=== PATIENT | female | born 2000 | race American Indian/Alaskan Native ===

== ENCOUNTER 2019-03-01 22:22 | Emergency (ER) | payer SELFPAY ==
[2019-03-01 22:29] VITALS: BP 123/75
[2019-03-02 01:47] LABS: HCG Qualitative,Urine Negative (Negative)
[2019-03-02 01:50] LABS: Bacteria,Urine 2+ /HPF (Negative); Bilirubin,Urine NEG (Negative); Blood,Urine SM (Negative); Color,Urine Yellow (Yellow); Mucus,Urine 2+ /HPF; Urobilinogen,Urine < 2.0 mg/dL (<2.0)
--- NOTE | 2019-03-02 01:58 | Emergency Department Report ---
ED Female HPI - General Chief complaint: Urogenital-Female Stated complaint: VAGINAL IRRITATION FROM MONISTAT 7 CREAM Time Seen by Provider: 03/02/19 01:10 Source: patient Mode of arrival: Ambulatory Limitations: No Limitations - History of Present Illness Initial comments: pt is a 18 y/o aaf who presents for dyuria frequency and hx of candidal infec tion for past week there is no fever no chills no vaginal discharge patient states she is not sexually active no concern for STI for there is no back pain no nausea vomiting no pelvic pain last menstrual cycle 2 weeks ago. Complaint: dysuria Onset/Timin -: week(s) Location: suprapubic Radiation: suprapubic Severity: moderate Severity scale (0 -10): 5 Quality: cramping Consistency: constant Worsens with: urination Are you Now?: No Last Menstrual Period: 02/11/19 EDC: 11/18/19 Associated Symptoms: dysuria. denies: vaginal discharge, vaginal bleeding, abdominal pain, nausea/vomiting, fever/chills, hematuria, rash, seizure, shortness of breath, syncope, weakness - Related Data Sexually active: No : 0 Para: 0 A: 0 Previous Rx's Medication Instructions Recorded Last Taken Type Ibuprofen [Motrin 800 MG tab] 800 mg PO Q8HR PRN #30 tablet 03/02/19 Unknown Rx Nitrofurantoin [place]/M-Cryst 100 mg PO Q12HR 7 Days #14 capsule 03/02/19 Unknown Rx [Macrobid CAP] Allergies Allergy/AdvReac Type Severity Reaction Status Date / Time No Known Allergies Allergy Unverified 03/24/14 19:21 ED Review of Systems ROS: Stated complaint: VAGINAL IRRITATION FROM MONISTAT 7 CREAM Other details as noted in HPI Constitutional: denies: chills, fever Eyes: denies: eye pain, eye discharge, vision change ENT: denies: ear pain, throat pain Respiratory: denies: cough, shortness of breath, wheezing Cardiovascular: denies: chest pain, palpitations Endocrine: no symptoms reported Gastrointestinal: denies: abdominal pain, nausea, vomiting, diarrhea Genitourinary: urgency, dysuria, frequency. denies: hematuria, discharge, abnormal menses Musculoskeletal: denies: back pain, joint swelling, arthralgia Skin: denies: rash, lesions Neurological: denies: headache, weakness, paresthesias Psychiatric: denies: anxiety, depression Hematological/Lymphatic: denies: easy bleeding, easy bruising ED Past Medical Hx - Past Medical History Previous Medical History?: No - Surgical History Past Surgical History?: Yes Additional Surgical History: left arm surgery - Social History Smoking Status: Never Smoker - Medications Home Medications: Home Medications Medication Instructions Recorded Confirmed Last Taken Type Ibuprofen [Motrin 800 MG tab] 800 mg PO Q8HR PRN #30 tablet 03/02/19 Unknown Rx Nitrofurantoin [place]/M-Cryst 100 mg PO Q12HR 7 Days #14 capsule 03/02/19 Unknown Rx [Macrobid CAP] ED Physical Exam - General Limitations: No Limitations General appearance: alert, in no apparent distress - Head Head exam: Present: atraumatic, normocephalic - Eye Eye exam: Present: normal appearance, PERRL, EOMI Pupils: Present: normal accommodation - ENT ENT exam: Present: mucous membranes moist - Neck Neck exam: Present: normal inspection. Absent: lymphadenopathy - Respiratory Respiratory exam: Present: normal lung sounds bilaterally. Absent: respiratory distress, wheezes, stridor, chest wall tenderness - Cardiovascular Cardiovascular Exam: Present: regular rate, normal rhythm, normal heart sounds. Absent: systolic murmur, diastolic murmur, rubs, gallop - GI/Abdominal GI/Abdominal exam: Present: soft, normal bowel sounds. Absent: distended, tenderness, guarding, rebound, rigid, bruit, hernia - Rectal Rectal exam: Present: deferred - External exam: Present: other (deferred per patient ) - Extremities Exam Extremities exam: Present: normal inspection, full ROM. Absent: tenderness - Back Exam Back exam: Present: normal inspection, full ROM. Absent: tenderness, CVA tenderness (R), CVA tenderness (L), muscle spasm, paraspinal tenderness, vertebral tenderness, rash noted - Neurological Exam Neurological exam: Present: alert, oriented X3, CN II-XII intact, normal gait, reflexes normal - Psychiatric Psychiatric exam: Present: normal affect, normal mood - Skin Skin exam: Present: warm, dry, intact, normal color. Absent: rash ED Course Vital Signs 03/01/19 22:25 Temperature 98.7 F Pulse Rate 96 H Respiratory 18 Rate Blood Pressure 123/75 O2 Sat by Pulse 100 Oximetry ED Medical Decision Making - Lab Data Lab Results 03/02/19 Range/Units Unknown Urine Color Yellow (Yellow) Urine Turbidity Turbid (Clear) Urine pH 7.0 (5.0-7.0) Ur Specific [place] 1.025 (1.003-1.030) Urine Protein 100 mg/dl (Negative) mg/dL Urine Glucose (UA) Neg (Negative) mg/dL Urine Ketones Neg (Negative) mg/dL Urine Blood Sm (Negative) Urine Nitrite Neg (Negative) Ur Reducing Substances Not Reportable Urine Bilirubin Neg (Negative) Urine Ictotest Not Reportable Urine Urobilinogen < 2.0 (<2.0) mg/dL Ur Leukocyte Esterase Mod (Negative) Urine WBC (Auto) 97.0 H (0.0-6.0) /HPF Urine RBC (Auto) 26.0 (0.0-6.0) /HPF U Epithel Cells (Auto) 16.0 H (0-13.0) /HPF Urine Bacteria (Auto) 2+ (Negative) /HPF Urine Mucus 2+ /HPF Urine HCG, Qual Negative (Negative) - Medical Decision Making this is a UTI , plan macrobid , ibuprofen, follow up with pcp in 2-3 days return to emergency if symptoms worsen. pt verbalized agreement and understanding of same. Critical care attestation.: If time is entered above; I have spent that time in minutes in the direct care of this critically ill patient, excluding procedure time. ED Disposition Clinical Impression: UTI (urinary tract infection) Qualifiers: Urinary tract infection type: acute cystitis Hematuria presence: without hematuria Qualified Code(s): N30.00 - Acute cystitis without hematuria Disposition: TO HOME OR SELFCARE Is pt being admited?: No Does the pt Need Aspirin: No Condition: Stable Instructions: Urinary Tract Infection in Women (ED) Prescriptions: Nitrofurantoin [place]/M-Cryst [Macrobid CAP] 100 mg PO Q12HR 7 Days #14 capsule Ibuprofen [Motrin 800 MG tab] 800 mg PO Q8HR PRN #30 tablet PRN Reason: pain Referrals: BRIGHT HERNANDEZ MD [Primary Care Provider] - 3-5 Days Forms: Work/School Release Form(ED) Time of Disposition: 02:02
== END 2019-03-02 02:22 | disposition home or self-care (01) ==
LOC: ED 22:22
DX: N39.0 Urinary tract infection, site not specified (principal)
CPT/HCPCS: 81001; 81025; 87086; 99283

== ENCOUNTER 2021-05-15 12:05 | Emergency (ER) | payer SELFPAY ==
[2021-05-15 12:11] VITALS: BP 113/75
--- NOTE | 2021-05-15 12:31 | Emergency Department Report ---
ED Extremity Problem HPI - General Chief complaint: Extremity Injury, Lower Stated complaint: RT HIP PAIN Time Seen by Provider: 05/15/21 12:25 Source: patient Mode of arrival: Ambulatory Limitations: No Limitations - History of Present Illness Initial comments: Patient is a 20-year-old female presents emergency room complaints of right hip pain that began 8 to 9 months ago. She states that she was seen at an emergency room approximately 8 months ago and prescribed a medication and she states that improved her symptoms but then they returned 4 months ago. She did not follow- up with a primary care doctor or an orthopedic doctor. She denies any fall or injury. She denies any numbness, weakness, bowel or bladder incontinence, fever, vomiting, skin changes, leg swelling, calf pain. No past medical history. No allergies to medications. Last menstrual cycle 5 days ago. - Related Data Previous Rx's Medication Instructions Recorded Last Taken Type Cyclobenzaprine [Flexeril] 10 mg PO TID PRN #10 tablet 12/19/19 Unknown Rx Ibuprofen [Motrin] 800 mg PO Q8HR PRN #30 tablet 12/19/19 Unknown Rx predniSONE [Deltasone] 20 mg PO DAILY #5 tablet 12/19/19 Unknown Rx Menthol/Camphor [[place] Crapo 1 applicatio TP BID #18 oint...g. 05/15/21 Unknown Rx Ointment] Naproxen 375 mg PO BID PRN #20 tablet 05/15/21 Unknown Rx Allergies Allergy/AdvReac Type Severity Reaction Status Date / Time No Known Allergies Allergy Verified 05/15/21 12:09 ED Review of Systems ROS: Stated complaint: RT HIP PAIN Other details as noted in HPI Comment: All other systems reviewed and negative ED Past Medical Hx - Past Medical History Previous Medical History?: No - Surgical History Additional Surgical History: left arm surgery - Social History Smoking Status: Never Smoker Substance Use Type: None - Medications Home Medications: Home Medications Medication Instructions Recorded Confirmed Last Taken Type Cyclobenzaprine [Flexeril] 10 mg PO TID PRN #10 tablet 12/19/19 Unknown Rx Ibuprofen [Motrin] 800 mg PO Q8HR PRN #30 tablet 12/19/19 Unknown Rx predniSONE [Deltasone] 20 mg PO DAILY #5 tablet 12/19/19 Unknown Rx Menthol/Camphor [[place] Crapo 1 applicatio TP BID #18 oint...g. 05/15/21 Unknown Rx Ointment] Naproxen 375 mg PO BID PRN #20 tablet 05/15/21 Unknown Rx ED Physical Exam - General Limitations: No Limitations General appearance: alert, in no apparent distress - Head Head exam: Present: atraumatic, normocephalic - Eye Eye exam: Present: normal appearance - ENT ENT exam: Present: mucous membranes moist - Extremities Exam Extremities exam: Present: other (no bony ttp of the RLE, FROM of the RLE, no deformity, no edema, no skin changes, neurovascularly intact) - Neurological Exam Neurological exam: Present: alert, oriented X3, CN II-XII intact, normal gait. Absent: motor sensory deficit - Psychiatric Psychiatric exam: Present: normal affect, normal mood - Skin Skin exam: Present: warm, dry, intact ED Course Vital Signs 05/15/21 12:10 Temperature 97.8 F Pulse Rate 104 H Respiratory 18 Rate Blood Pressure 113/75 O2 Sat by Pulse 99 Oximetry ED Medical Decision Making - Medical Decision Making Patient is a 20-year-old female presents emergency room complaints of right hip pain that began 8 to 9 months ago. She states that she was seen at an emergency room approximately 8 months ago and prescribed a medication and she states that improved her symptoms but then they returned 4 months ago. She did not follow- up with a primary care doctor or an orthopedic doctor. She denies any fall or injury. She denies any numbness, weakness, bowel or bladder incontinence, fever, vomiting, skin changes, leg swelling, calf pain. No past medical history. No allergies to medications. Last menstrual cycle 5 days ago. On exam:no bony ttp of the RLE, FROM of the RLE, no deformity, no edema, no skin changes, neurovascularly intact. Patient has no clinical signs of DVT, no calf pain or leg swelling. No clinical signs of infection or septic joint. She has 2+ distal pulses, no signs of acute arterial occlusion. She has had no trauma to suspect fracture or dislocation and she has full range of motion. Patient given prescription for medication, will be referred to orthopedic doctor. advised pt Please use medication as prescribed. May use ice for 15 minutes at a time, heating pad, rest, epsom salt bath. Do not use heat or ice while using [place] balm. Follow-up with a primary care doctor. Follow-up with orthopedic doctor. Return to emergency room for any new or worsening symptoms. Critical care attestation.: If time is entered above; I have spent that time in minutes in the direct care of this critically ill patient, excluding procedure time. ED Disposition Clinical Impression: Chronic right hip pain Disposition: 01 HOME / SELF CARE / HOMELESS Is pt being admited?: No Does the pt Need Aspirin: No Condition: Stable Instructions: Hip Pain Additional Instructions: Please use medication as prescribed. May use ice for 15 minutes at a time, heating pad, rest, epsom salt bath. Do not use heat or ice while using [place] balm. Follow-up with a primary care doctor. Follow-up with orthopedic doctor. Return to emergency room for any new or worsening symptoms. Prescriptions: Naproxen 375 mg PO BID PRN #20 tablet PRN Reason: pain Menthol/Camphor [[place] Crapo Ointment] 1 applicatio TP BID #18 oint...g. Referrals: YARELI DALTON MD [Staff Physician] - 3-5 Days (orthopedic) [facility] [Provider Group] - 3-5 Days (orthopedic) [facility] [Provider Group] - 3-5 Days (primary care) JABARI COLLINS MD [Staff Physician] - 3-5 Days (primary care) Time of Disposition: 12:33 Print Language: ITALIAN
== END 2021-05-15 13:23 | disposition home or self-care (01) ==
LOC: ED 12:05
DX: M25.551 Pain in right hip (principal); G89.29 Other chronic pain; Z79.899 Other long term (current) drug therapy
CPT/HCPCS: 99281

== ENCOUNTER 2021-09-07 20:46 | Emergency (ER) | payer SELFPAY | END 2021-09-08 02:45 | disposition left against medical advice (07) | LOC: ED 20:46 | DX: M54.9 Dorsalgia, unspecified (principal); Z53.21 Procedure and treatment not carried out due to patient leaving prior to being seen by health care provider; V89.2XXA Person injured in unspecified motor-vehicle accident, traffic, initial encounter; Y93.89 Activity, other specified; Y92.89 Other specified places as the place of occurrence of the external cause; Y99.8 Other external cause status ==

== ENCOUNTER 2021-12-16 07:15 | Emergency (ER) | payer SELFPAY ==
[2021-12-16 07:57] VITALS: BP 127/77
--- NOTE | 2021-12-16 09:29 | Emergency Department Report ---
Abscess Boil HPI - HPI Chief Complaint: Urogenital-Female Stated Complaint: VAGINAL SWELLING Time Seen by Provider: 12/16/21 09:26 Duration: 1 Day Location: Other Severity: Mild History: Yes Pain, No Fever, No Purulent Drainage, No Numbness, No Foreign Body, No Previous History, No Insect Bite HPI: Patient is a 21-year-old female that comes in with right labial pain. There is no abscess formed. But there is some lymphadenitis. She states is painful. She denies vaginal discharge or bleeding. She denies any dysuria. She has never had abscess in the past. Home Medications: Previous Rx's Medication Instructions Recorded Last Taken Type Cyclobenzaprine [Flexeril] 10 mg PO TID PRN #10 tablet 12/19/19 Unknown Rx Ibuprofen [Motrin] 800 mg PO Q8HR PRN #30 tablet 12/19/19 Unknown Rx predniSONE [Deltasone] 20 mg PO DAILY #5 tablet 12/19/19 Unknown Rx Menthol/Camphor [[place] 1 applicatio TP BID #18 oint...g. 05/15/21 Unknown Rx Ointment] Naproxen 375 mg PO BID PRN #20 tablet 05/15/21 Unknown Rx cephALEXin [Keflex] 500 mg PO Q12HR #20 cap 12/16/21 Unknown Rx Allergies/Adverse Reactions: Allergies Allergy/AdvReac Type Severity Reaction Status Date / Time No Known Allergies Allergy Verified 05/15/21 12:09 ED Review of Systems ROS: Stated complaint: VAGINAL SWELLING Other details as noted in HPI Comment: All other systems reviewed and negative ED Past Medical Hx - Past Medical History Previous Medical History?: No - Surgical History Past Surgical History?: Yes Additional Surgical History: left arm surgery - Family History Family history: no significant - Social History Smoking Status: Never Smoker Substance Use Type: None - Medications Home Medications: Home Medications Medication Instructions Recorded Confirmed Last Taken Type Cyclobenzaprine [Flexeril] 10 mg PO TID PRN #10 tablet 12/19/19 Unknown Rx Ibuprofen [Motrin] 800 mg PO Q8HR PRN #30 tablet 12/19/19 Unknown Rx predniSONE [Deltasone] 20 mg PO DAILY #5 tablet 12/19/19 Unknown Rx Menthol/Camphor [[place] 1 applicatio TP BID #18 oint...g. 05/15/21 Unknown Rx Ointment] Naproxen 375 mg PO BID PRN #20 tablet 05/15/21 Unknown Rx cephALEXin [Keflex] 500 mg PO Q12HR #20 cap 12/16/21 Unknown Rx ED Abscess Boil Physical Exam - Exam General: Vital signs noted. No distress. Alert and acting appropriately. Size: 1 cm Exam: Yes Tenderness, Yes Normal Neurologic Exam, Yes Normal Circulation, No Fluctuance, No Surrounding Cellulites/Erythema, No Lymphangitis, No Crepitation, No Heart Murmur ED Course Vital Signs 12/16/21 07:55 Temperature 98.5 F Pulse Rate 68 Respiratory 16 Rate Blood Pressure 127/77 [Left] O2 Sat by Pulse 97 Oximetry Critical care attestation.: If time is entered above; I have spent that time in minutes in the direct care of this critically ill patient, excluding procedure time. ED Medical Decision Making - Medical Decision Making There appears to be a right labial abscess forming. However there is nothing for I&D at this time. I am starting her on Keflex. She understands that she needs to take until gone. Patient has normal vital signs no tachycardia hypotension or fever. She is taking p.o. Patient being discharged home with discharge plan of care including diet, activity, medications and follow-up. She verbalizes understanding of plan of care Vital Signs 12/16/21 07:55 Temperature 98.5 F Pulse Rate 68 Respiratory 16 Rate Blood Pressure 127/77 [Left] O2 Sat by Pulse 97 Oximetry - Differential Diagnosis Abscess versus cellulitis ED Disposition Clinical Impression: Abscess Disposition: 01 HOME / SELF CARE / HOMELESS Is pt being admited?: No Does the pt Need Aspirin: No Condition: Stable Instructions: Skin Abscess Additional Instructions: Soak in Epson salts in the bathtub several times a day. This will help to come to ahead as we discussed. Avoid shaving or waxing your private area. Motrin or Tylenol for pain Medication as ordered today until gone Follow-up with PCP or [facility] next week. Have given you referral below. Referrals: JABARI COLLINS MD [Staff Physician] - 3-5 Days WHITNEY TREVIZO MD [Staff Physician] - 3-5 Days Forms: Work/School Release Form(ED) Time of Disposition: 09:32
== END 2021-12-16 11:13 | disposition home or self-care (01) ==
LOC: ED 07:15
DX: N76.4 Abscess of vulva (principal)
CPT/HCPCS: 99282